=== PATIENT | male | born 1950 | race Caucasian/White ===

== ENCOUNTER 2020-05-06 11:28 | Emergency (ER) | payer MEDICAID, MEDICARE ==
[~2020-05-06] VITALS: Ht 157.5 cm; Wt 56.8 kg
[~2020-05-06 11:28] MED LIST: ASPI-728 PO; ATEN-73 PO; FOLI-130 PO; LIB10 PO; MAGOX PO; MULT1CAP32 PO; PANT-31 PO; THIAMINE HCL100 MG PO
[2020-05-06] MEDS ORDERED: THIA100T80 PO (11:44)
[2020-05-06] MEDS ORDERED: ATOR40TA28 PO (11:44)
[2020-05-06] MEDS ORDERED: MECLIZINE HCL 25 MG TABLET PO ONE (12:00)
[2020-05-06 12:30] LABS: BASOPHILS % (AUTO) 0.3 % (0.0-2.0); EOSINOPHILS % (AUTO) 0.7 % (1.0-6.0); HEMATOCRIT 41.1 % (41-53); HEMOGLOBIN 14.1 g/dL (13.5-17.5); LYMPHOCYTES # (AUTO) 0.5 K/uL (1.0-4.8); LYMPHOCYTES % (AUTO) 12.6 % (22.0-44.0); MEAN CORPUSCULAR HEMOGLOBIN 34.4 pg (26.0-34.0); MEAN CORPUSCULAR HGB CONC 34.3 G/dL (31.0-37.0); MEAN CORPUSCULAR VOLUME 100 fL (80-100); MONOCYTES # (AUTO) 0.4 K/uL (0.1-1.0); NEUTROPHILS # (AUTO) 2.8 K/uL (1.8-7.7); NEUTROPHILS % (AUTO) 75.4 % (40.0-70.0); PLATELET COUNT (AUTO) 181 K/uL (150-450); RED BLOOD CELL COUNT(AUTO) 4.09 MIL/uL (4.50-5.90); RED CELL DISTRIBUTION WIDTH 14.2 % (11.5-14.5)
[2020-05-06 13:00] VITALS: BP 139/79
[2020-05-06 14:12] LABS: ANION GAP 10 mmol/L (8-16); CALCIUM, TOTAL 9.6 mg/dL (8.8-10.5); CARBON DIOXIDE 26 mmol/L (22-29); CHLORIDE 101 mmol/L (98-107); CREATININE 0.82 mg/dL (0.60-1.30); GLOMERULAR FILTR. RATE CALC > 60 mL/min (>60); GLUCOSE,RANDOM 177 mg/dL (70-110); POTASSIUM 4.6 mmol/L (3.5-5.1); SODIUM SERUM 137 mmol/L (136-145); UREA NITROGEN, BLOOD 10 mg/dL (7-18)
== END 2020-05-06 14:38 | disposition home or self-care (01) ==
LOC: EMS 11:28
DX: R42 Dizziness and giddiness (principal)
CPT/HCPCS: 70450; 93005